=== PATIENT | male | born 2005 | race Caucasian/White ===

== ENCOUNTER 2024-12-17 15:28 | Emergency (ER) | payer OTHER ==
[~2024-12-17] VITALS: Ht 185.4 cm; Wt 75.0 kg
[2024-12-17 15:40] VITALS: BP 98/72; PULSE 95; RESP 20; TEMP 97.9; O2SAT 99
[2024-12-17] MEDS ORDERED: DOXY-354 PO (17:24)
== END 2024-12-17 17:59 | disposition home or self-care (01) ==
LOC: EMS 15:28
DX: L73.9 Follicular disorder, unspecified (principal); F17.210 Nicotine dependence, cigarettes, uncomplicated; F15.90 Other stimulant use, unspecified, uncomplicated; Z79.899 Other long term (current) drug therapy; Z98.890 Other specified postprocedural states
CPT/HCPCS: 99283; Z7502